=== PATIENT | female | born 2000 | race Caucasian/White ===

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

== ENCOUNTER 2021-05-24 19:17 | Emergency (ER) | payer BC, SELFPAY ==
[2021-05-24 19:18] VITALS: BP 88/69; PULSE 99; RESP 12; TEMP 37.9; O2SAT 99; BMI 37.0
--- NOTE | 2021-05-24 19:33 | RAD_ITS ---
INDICATION: LEG PAIN EXAMINATION/TECHNIQUE: X-RAY - LEFT XR Femur Min 2 Views 4 VIEWS COMPARISON: None. FINDINGS: Internal fixation plate extends from the proximal femoral diaphysis to the lateral femoral condyle. Multiple intraosseous screws. Hardware is intact. No perihardware lucency. Hardware spans a distal femoral diaphysis area of linear sclerosis and lucency which may be concordant with reported history of prior tumor removal in 2014. Correlation with prior imaging would be helpful. There is an area of ill-defined, increased lucency in the metadiaphyseal distal femur, distal to the area of above described sclerosis. No associated cortical lucency. Aggressive osseous lesion can''t be excluded and further evaluation with CT is recommended. RAD/Femur Min 2 Views IMPRESSION: Suspicious increased lucency distal femoral metadiaphysis meriting further evaluation with CT. Internal fixation plate spanning a more proximal area of linear sclerosis and lucency may represent normal postsurgical changes from tumor resection. Comparison with prior imaging would be helpful. Electronically Signed: Artie Suarez DO at 20:39 EDT Tel , Service support ,
--- NOTE | 2021-05-24 20:09 | EDS_ITS ---
HPI History of Present Illness Chief Complaint: Lower Extremity Injury Informant: patient Narrative Narrative: History bone cancer with pathological fracture 6 years ago left femur repair [facility] [place] [facility]. States since then will have intermittent flares of pain that would last few weeks. Last flare was this spring. Pain increasing over the past 2 days. Today due to pain fell down onto her hip. No head injuries. Status post fentanyl 50 mics per EMS. Has been using ibuprofen over last 2 days. However states naproxen helps better. She is not a diabetic. She states she is here for school. Her last flare was while she is in [place]. No paresthesias. Denies redness or drainage. Elevated temperature from triage states she has had some sinus congestion. No headache no subjective fevers. No cough. Denies urinary symptoms. Denies vomiting or diarrhea. Prior similar symptoms: Yes PFSH PFSH Medical History Autism Identifies as non-conforming gender Tumor Home Medications desogestrel-ethinyl estradiol 1 ea PO DAILY 10/21/20 [History Last Taken Unknown] fluoxetine 30 mg PO DAILY 10/21/20 [History Last Taken Unknown] naproxen 500 mg PO BID PRN #20 tab 05/25/21 [Rx Last Taken Unknown] prednisone 60 mg PO DAILY #12 tab 05/25/21 [Rx Last Taken Unknown] Allergy/AdvReac Type Severity Reaction Status Date / Time No Known Allergies Allergy Verified 05/24/21 19:30 Social History Smoking Status: Never smoker ROS ROS ED Constitutional Constitutional ED: Denies chills, fever(s) or sweats Eyes Eyes: Denies change in vision ENT ENT ED: Denies dysphagia or sore throat Cardiovascular Cardiovascular: Denies chest pain, leg edema, palpitations or racing heartbeat Respiratory/Chest Respiratory/Chest: Denies cough, dyspnea or dyspnea on exertion Gastrointestinal Gastrointestinal: Denies abdominal pain, diarrhea, nausea or vomiting Genitourinary Genitourinary ED: Denies dysuria, hematuria or urinary frequency Musculoskeletal Musculoskeletal: Reports arthralgias; Denies back pain, extremity pain or neck pain Integumentary Denies rash or wounds Neurologic Neurologic: Denies headache(s), paresthesias or weakness EXAM Physical Exam Const Vital Signs: 05/24/21 19:18 05/24/21 21:18 05/24/21 23:13 Temperature 100.2 F H Temperature Source Oral Pulse Rate 99 Respiratory Rate 12 Blood Pressure 88/69 L 109/72 Blood Pressure Mean 75 84 Pulse Ox 99 98 95 Oxygen Delivery Method Room Air Room Air Positive well nourished and well developed General Appearance ED: well developed and NAD HEENT Reports moist mucous membranes normocephalic and atraumatic Eyes PERRL, EOMs intact bilaterally and conjunctivae normal General Eye ED: Yes normal appearance of both eyes Neck no lymphadenopathy and supple General: Negative for tenderness Chest Wall Chest: Negative for tenderness Resp normal respiratory effort and normal air movement Effort and Inspection: symmetric chest movement; Negative for respiratory distress Cardio regular rate, regular rhythm and no murmurs Peripheral Pulses: pulses 2+ throughout GI normal to inspection, nondistended, normoactive bowel sounds and non-tender Palpation: Negative for guarding or rebound tenderness present Back/Spine no CVA tenderness and no thoracic nor lumbar tenderness Extremity Extremity Narrative: Left lower extremity: No shortening or rotation. Tender at the greater trochanteric. No ecchymosis. Healed scar lateral distal leg. No erythema or drainage. No deformities. Pulses were intact distally. General Extremety ED: Negative for edema or tenderness General Extremity: Negative for edema Neuro oriented x3 and no sensory deficits noted Sensorium / Orientation: awake and alert Skin no rashes or lesions noted and no wounds MDM MDM MDM Narrative Medical decision making narrative: Protocol femur films were obtained and reviewed noted hardware intact. She has hip tenderness. Dedicated hip films will be obtained. She did not want anything stronger for pain. Will give Toradol. Will start prednisone due to pain flare. She had blood pressure 88/69 fluids were started by EMS this will be continued. Will check urine and hCG. We will plan for crutches. Hip films were negative. Femur x-ray read by radiology concerns for increased lucency distal femur. Patient nontender in this region. She does follow-up with her oncologist back in [place] regularly. She states she called her mother, she will be picked up tomorrow to go back home. Discussed following up with her oncology team. Blood pressure improved on reevaluation systolic 120s. Crutches provided. She only wants naproxen and will be continued on steroids. Her symptoms were improving on reevaluation. Images were placed on a disc for patient to take back home. All questions answered. Lab Data Attestation: I reviewed the patient's lab results. Labs: Laboratory Results - last 24 hr 05/24/21 21:10 Urine Color Yellow Urine Clarity Clear Urine pH 8.0 Ur Specific [place] 1.015 Urine Protein Negative Urine Glucose (UA) Normal Urine Ketones Negative Urine Occult Blood 50 H Urine Nitrite Negative Urine Bilirubin Negative Urine Urobilinogen Normal Ur Leukocyte Esterase Negative Urine RBC 0-5 SEEN Urine WBC 0 SEEN Ur Squamous Epith Cells 0 SEEN Urine Bacteria 0 SEEN Urine Mucus 0 SEEN Urine Test Negative Radiography Diagnostic Testing: Radiology Impression Femur X-Ray 05/24/21 19:33 IMPRESSION: Suspicious increased lucency distal femoral metadiaphysis meriting further evaluation with CT. Internal fixation plate spanning a more proximal area of linear sclerosis and lucency may represent normal postsurgical changes from tumor resection. Comparison with prior imaging would be helpful. Electronically Signed: Artie Suarez DO at 20:39 EDT Tel , Service support , Hip/Pelvis X-Ray 05/24/21 22:14 IMPRESSION: Normal x-ray examination of the pelvis and hip. Electronically Signed: Benja Bustillo MD at 23:22 EDT , Service support , Left femur 2 views: No acute process. Left hip and pelvis 3 views: Discharge Plan Triage Chief Complaint: Lower Extremity Injury ED Provider: Burak Koenig Dx/Rx/DC Orders Clinical Impression: Contusion of hip, left, History of bone cancer Instructions: Bruises (Contusions) Prescriptions: New prednisone 20 MG tablet 60 mg PO DAILY Qty: 12 RF: 0 naproxen 500 MG tablet 500 mg PO BID PRN Qty: 20 RF: 0 No Action desogestrel-ethinyl estradiol 1 EACH tablet 1 ea PO DAILY RF: 0 fluoxetine 10 MG capsule 30 mg PO DAILY RF: 0 Primary Care Provider: [facility],Out of Referrals: [facility],Out of [Primary Care Provider] - Activity Restrictions/Additional Instructions: X-ray of your hip was negative. Your femur x-ray hardware is intact, reported increased lucencies to the distal femur. You are nontender in this region. Take imagings back home to your oncologist and follow-up for further evaluation. Disposition Disposition: Home, Self Care
[2021-05-24] MEDS: Ketorolac 15 MG/ML Vial IV (20:33)
[2021-05-24] MEDS: 0.9% Normal Saline 1,000 ML 1000 ML IV (20:33)
[2021-05-24] MEDS: predniSONE 20 MG Tablet 60 MG PO (20:34)
--- NOTE | 2021-05-24 21:13 | ED.RN ---
pt refused to have leg elevated.
[2021-05-24 21:15] LABS: Bacteria 0 SEEN /hpf (None Seen); Mucous, Urine 0 SEEN /hpf (<or=2+); Squamous Epithelial Cells - UA 0 SEEN /hpf (5-10); White Blood Cells 0 SEEN /hpf (0-5)
[2021-05-24 21:18] VITALS: BP 109/72; O2SAT 98
[2021-05-24 21:29] LABS: Color, Urine Yellow (Yellow); Glucose, Dipstick Normal (Normal); Ketone-Dipstick Negative (Negative); Leukocyte Esterase-Dipstick Negative /ul (Negative); Nitrite-Dipstick Negative (Negative); Occult Blood-Urine 50 /ul (Negative); Protein-Dipstick Negative (Negative); Specific Gravity, Urine 1.015 (1.002-1.030); Urine Bilirubin Dipstick Negative (Negative); Urine Clarity Clear (Clear); Urine Urobilinogen Normal (Normal)
[2021-05-24 21:46] LABS: Red Blood Cells-Urine 0-5 SEEN /hpf (0-5)
[2021-05-24 21:48] LABS: Internal QC Validated? YES +Cl - CLEAR BKGD
[2021-05-24 21:49] LABS: Pregnancy, Urine Negative Negative
--- NOTE | 2021-05-24 22:14 | RAD_ITS ---
STUDY: X-RAY - PELVIS AND LEFT HIP REASON FOR EXAM: Female, 21 years old. fall, injury TECHNIQUE: 3 views of the pelvis and hip. COMPARISON: None. FINDINGS: There is a non-specific bowel gas pattern. Normal visualized soft tissue structures. Normal bilateral iliac wings, sacroiliac joints and visualized sacrum. Normal bilateral superior and inferior pubic rami. Normal pubic symphysis. Normal bilateral ischial tuberosities. Side plate and screws mid femur incompletely imaged after the [id number]. Normal visualized femoral head. Normal acetabulum. Normal hip joint. RAD/HIP, UNI W/ Pelvis 2-3 Views IMPRESSION: Normal x-ray examination of the pelvis and hip. Electronically Signed: Benja Bustillo MD at 23:22 EDT , Service support ,
[2021-05-24 23:13] VITALS: O2SAT 95
== END 2021-05-25 00:26 | disposition home or self-care (01) ==
PROVIDERS: Emergency Provider Emergency Medicine
DX: S70.02XA Contusion of left hip, initial encounter (principal); X58.XXXA Exposure to other specified factors, initial encounter
CPT/HCPCS: 73502; 73552; 81001; 81025; 96361; 96374; 99285; A4216

== ENCOUNTER 2022-09-01 00:32 | Emergency (ER) | payer BC, SELFPAY ==
[2022-09-01 00:33] VITALS: BP 143/88; PULSE 85; RESP 18; TEMP 36; O2SAT 98; BMI 42.7
--- NOTE | 2022-09-01 00:44 | CT_ITS ---
INDICATION: Pain EXAMINATION: CT BRAIN - CT Head or Brain W/O Contrast Injection TECHNIQUE: Multiple axial images were obtained of the head without intravenous contrast. A radiation dose optimization technique was used for this scan. IV Contrast dosage and agent: None. COMPARISON: FINDINGS: BRAIN: No acute bleed. No edema. Merrill-white matter differentiation is maintained. VENTRICLES AND SULCI: Not dilated. EXTRA-AXIAL: No hemorrhage, fluid collection, or mass. CALVARIUM / SKULL BASE: Unremarkable. FACE/SINUSES: Unremarkable. SOFT TISSUES: Unremarkable. CT/Brain/Head without Contrast IMPRESSION: No acute abnormality. Electronically Signed: Saritha Leslie MD at 1:17 EST ,
--- NOTE | 2022-09-01 00:45 | EX.ED.VIS.HA ---
HPI History of Present Illness Chief Complaint: Headache Informant: patient Onset/Context/Timing Onset: Hours (10) Context: Gradual Timing: Continuous Quality -Headache: Positive for Similar Prior Headaches and Throbbing Location: behind ethmoid area/eyes Current Severity: Severe Maximum Severity: Severe Worsened by: nothing Relieved by: nothing; tried ibuprofen earlier Associated Symptoms/Injury Associated Symptoms: Negative for Fever, Nausea, Vomiting, Sore Throat, Sinus Pressure, Numbness, Tingling, Preceding Aura, Visual Changes, Blurred Vision, Photophobia or Visual Loss Injury - MCGRAW: Negative for Direct Trauma Narrative Narrative: Patient presenting with a severe headache that will not go away. She states she has been having headaches and fatigue for the past 6 months or more. 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 She states this headache is similar to the prior ones but it is worse and more persistent. Sometimes ibuprofen makes it better and sometimes it does not, today it has not helped. She has not taken anything else. She has had no [facility] imaging yet since these started. She states she has been referred to neurology but has not seen them yet. She was seeing endocrinology because she has a bit of fatty swelling on the back of her neck and they were considering Luling's disease. She denies having had COVID ever that she knows of. She denies any recent URI symptoms or fevers or chills. She is not congested. No focal neurologic symptoms. [facility] Medical History Autism Identifies as non-conforming gender Tumor Home Medications desogestrel 0.15 mg-ethinyl estradiol 0.03 mg tablet 1 ea PO DAILY 10/21/20 [History Last Taken Unknown] fluoxetine 10 mg capsule 30 mg PO DAILY 10/21/20 [History Last Taken Unknown] buspirone 10 mg tablet 5 mg PO DAILY 09/01/22 [History Last Taken Unknown] metoclopramide HCl 10 mg tablet 10 mg PO Q6H PRN nausea or headache #10 tabs 09/01/22 [Rx Last Taken Unknown] Allergy/AdvReac Type Severity Reaction Status Date / Time No Known Allergies Allergy Verified 05/24/21 19:30 Family History other other (No known family history of cerebral aneurysms) Social History Smoking Status: Never smoker ROS ROS ED Constitutional Constitutional ED: Reports fatigue; Denies chills or fever(s) Eyes Eyes: Denies change in vision or diplopia ENT ENT ED: Reports headache(s); Denies ear pain, nasal congestion, rhinorrhea, sinus pain, sore throat, tinnitus or vertigo Cardiovascular Cardiovascular: Denies chest pain or palpitations Respiratory/Chest Respiratory/Chest: Denies cough or dyspnea Gastrointestinal Gastrointestinal: Denies abdominal pain, diarrhea, nausea or vomiting Genitourinary Genitourinary ED: Denies dysuria or hematuria Musculoskeletal Musculoskeletal: Denies back pain or neck pain Integumentary Denies abscess or rash Neurologic Neurologic: Reports headache(s); Denies paresthesias or weakness Psychiatric Psychiatric: Denies anxiety or suicidal thoughts EXAM Physical Exam Const Vital Signs: 09/01/22 00:33 Temperature 96.8 F L Temperature Source Temporal Pulse Rate 85 Respiratory Rate 18 Blood Pressure 143/88 H Blood Pressure Mean 106 Pulse Ox 98 Oxygen Delivery Method Room Air Positive well nourished and well developed General Appearance ED: well developed and NAD HEENT Reports TM's clear and moist mucous membranes normocephalic and atraumatic Face and Sinus: Negative for sinus tenderness Tympanic Membrane ED: Yes TM's clear Eyes PERRL and EOMs intact bilaterally Neck full ROM, no lymphadenopathy, supple and no meningeal signs Resp normal respiratory effort and clear to auscultation bilaterally Cardio regular rate, regular rhythm and no murmurs GI non-tender and non-distended Auscultation: normoactive bowel sounds Palpation: soft Back/Spine no CVA tenderness General Back: other FROM Extremity normal to inspection General Extremety ED: Negative for edema, pulses abnormal or tenderness General Extremity: Negative for edema or pulses abnormal Neuro oriented x3, CN's II-XII intact bilaterally, no sensory deficits noted and gait normal Sensorium / Orientation: awake and alert Motor Exam: strength 5/5 throughout Psych mental status grossly normal Skin no rashes or lesions noted and no wounds MDM MDM MDM Narrative Medical decision making narrative: Patient's vital signs are normal, her exam is normal. Given that she has been having some symptoms chronically but this is the worst headache she has ever had, I performed a screening CT of the brain in order to rule out hemorrhage and mass-effect. My interpretation of the CT agrees with that of the radiologist. Radiologist agrees that it is negative for nothing acute. She was given IV fluids, Toradol, Reglan she did have improvement. There are no signs of anything like sphenoid sinusitis on the CT to warrant antibiotics or any other specific treatments right now. Supportive care is advised I will give her prescription for Reglan she is encouraged to use that in addition to ibuprofen as needed for recurrent headaches and follow-up with her doctors. Radiography Diagnostic Testing: Clinical Impression(s) from Imaging Studies Brain CT 09/01/22 00:44 IMPRESSION: No acute abnormality. Electronically Signed: Saritha Leslie MD at 1:17 EST , Discharge Plan Triage Chief Complaint: Headache ED Provider: Nathan Hung Dx/Rx/DC Orders Clinical Impression: Acute headache Instructions: ED Headache Unspecified Prescriptions: New metoclopramide HCl [metoclopramide HCl] 10 mg tablet 10 mg PO Q6H PRN (Reason: nausea or headache) Qty: 10 0RF No Action desogestrel-ethinyl estradiol 1 EACH tablet 1 ea PO DAILY fluoxetine 10 MG capsule 30 mg PO DAILY buspirone 10 mg tablet 5 mg PO DAILY Primary Care Provider: [facility] Doctor,Out of Referrals: [facility] Doctor,Out of [Primary Care Provider] - As soon as possible Disposition Disposition: Home, Self Care
[2022-09-01] MEDS: 0.9% Normal Saline 1,000 ML 999 ML IV (00:49)
[2022-09-01] MEDS: Metoclopramide 10 MG/2 ML Vial 5 MG IV (00:49)
[2022-09-01] MEDS: Ketorolac 15 MG/ML Vial IV (00:49)
== END 2022-09-01 01:58 | disposition home or self-care (01) ==
PROVIDERS: Emergency Provider Emergency Medicine; Visit Provider Emergency Medicine
DX: R51.9 Headache, unspecified (principal)
CPT/HCPCS: 70450; 96361; 96374; 99283; J7030; A4216